=== PATIENT | male | born 1990 | race American Indian/Alaskan Native ===

== ENCOUNTER 2020-08-03 18:10 | Emergency (ER) | payer OTHER ==
[~2020-08-03] VITALS: Ht 172.7 cm; Wt 65.9 kg
[2020-08-03 18:21] VITALS: TEMP 97.9
[2020-08-03 19:13] VITALS: BP 132/85; PULSE 89
== END 2020-08-03 19:13 | disposition home or self-care (01) ==
LOC: COL.ER 18:10
DX: S61.012A Laceration without foreign body of left thumb without damage to nail, initial encounter (principal); Z23 Encounter for immunization; W26.0XXA Contact with knife, initial encounter; Y92.511 Restaurant or cafe as the place of occurrence of the external cause; Y99.0 Civilian activity done for income or pay

== ENCOUNTER 2020-08-17 19:56 | Emergency (ER) | payer OTHER ==
[~2020-08-17] VITALS: Ht 172.7 cm; Wt 72.7 kg
[2020-08-17 20:32] VITALS: TEMP 97.2
[2020-08-17 21:31] VITALS: BP 125/70; PULSE 78
== END 2020-08-17 21:31 | disposition home or self-care (01) ==
LOC: COL.ER 19:56
DX: S61.012A Laceration without foreign body of left thumb without damage to nail, initial encounter (principal); Y92.59 Other trade areas as the place of occurrence of the external cause; Y99.0 Civilian activity done for income or pay